=== PATIENT | male | born 1950 | race Caucasian/White ===

== ENCOUNTER → 2022-02-02 | Outpatient (CLI) | payer MEDICARE, OTHER ==
--- NOTE | 2022-02-02 14:46 | US ---
EXAMINATION TYPE: US abdomen complete DATE OF EXAM: 02/02/2022 COMPARISON: Ultrasound 05/04/2016 and MRI 02/17/2016 CLINICAL HISTORY: 71-year-old male N28.1 CYST OF KIDNEY, ACQUIRED. TECHNIQUE: Multiple sonographic images of the abdomen are obtained. FINDINGS: EXAM MEASUREMENTS: Liver Length: 10.5 cm Gallbladder Wall: 0.2 cm CBD: 0.5 cm Spleen: 10.3 cm Right Kidney: 11.9 x 5.4 x 6.2 cm Left Kidney: 12.9 x 5.5 x 5.9 cm Pancreas: Only small portions of the pancreatic body are seen. Most is obscured by bowel gas shadowi ng. Liver: Complex, septated cyst posterior left liver lobe measures 2.3 x 2.3 x 1.5 cm. Mild increased echogenicity. Some portions are obscured by rib and bowel gas shadowing. Gallbladder: No stones seen Evidence for sonographic Iglesias's sign: No CBD: wnl Spleen: wnl Right Kidney: No hydronephrosis or masses seen Left Kidney: No hydronephrosis. There is a vague hypoechoic area at the lower pole cortex measuring 1.9 x 1.5 x 1.5 cm (versus 1.7 x 1.7 x 1.6 cm in 2016) Upper IVC: wnl Abd Aorta: wnl IMPRESSION: 1. A vague cortical lesion in the lower pole of the left kidney measures 1.9 cm (versus 1.7 cm in 201 6). Not assessed in detail by ultrasound. Probable benign cyst. Precautionary annual surveillance can be performed. 2. A mildly complex cyst in the left liver lobe measures 2.3 cm. A 2.5 cm benign septated cyst was pr esent back on 02/17/2016.
== END | disposition home or self-care (01) ==
LOC: RADUSWWP 07:28
PROVIDERS: ATTEND Internal Medicine
DX: K76.89 Other specified diseases of liver (principal); N28.9 Disorder of kidney and ureter, unspecified
CPT/HCPCS: 76700

== ENCOUNTER → 2023-03-08 | Outpatient (CLI) | payer MEDICARE, OTHER ==
--- NOTE | 2023-03-08 09:04 | US ---
EXAMINATION TYPE: US kidneys/renal and bladder DATE OF EXAM: 03/08/2023 COMPARISON: 02/02/2022, CT 12/23/2015 CLINICAL INDICATION: Male, 72 years old with history of N28.1 RENAL CYST; Follow up left kidney EXAM MEASUREMENTS: Right Kidney: 11.2 x 4.1 x 5.7 cm Left Kidney: 11.5 x 5.5 x 5.4 cm Right Kidney: No hydronephrosis or masses seen Left Kidney: Extrarenal pelvis. Lower pole cortical hypoechoic lesion previously seen = 1.5 x 1.4 x 1.4 cm Bladder: distended, anechoic Bilateral Jets seen There is no evidence for hydronephrosis at this point in time. No nephrolithiasis is seen. No jada s are identified. The urinary bladder is anechoic. Bilateral ureteral jets are seen. IMPRESSION: 1. No obstructive uropathy 2. Left lower pole renal lesion, complete evaluation with MRI renal mass protocol is recommended.
== END | disposition home or self-care (01) ==
LOC: RADUSWWP 08:24
PROVIDERS: ATTEND Internal Medicine
DX: N28.1 Cyst of kidney, acquired (principal); N28.89 Other specified disorders of kidney and ureter
CPT/HCPCS: 76770

== ENCOUNTER → 2023-03-24 | Outpatient (CLI) | payer MEDICARE, OTHER ==
--- NOTE | 2023-03-26 17:41 | MR ---
EXAMINATION TYPE: MR kidney wo/w con DATE OF EXAM: 03/24/2023 1:03 PM INDICATION: Patient age:Male; 72 years old; Reason for study: N28.9 DISORDER OF KIDNEY AND URETER; [facility]. Left lower pole renal lesion. COMPARISON: MRI 02/17/2016, ultrasound 03/08/2023 TECHNIQUE: Multiplanar multi-sequence imaging was performed without contrast. Post contrast imaging was performed. Post IV contrast subtraction images were also submitted for review. IV Contrast: 9 cc Gadavist FINDINGS: LOWER CHEST: No gross irregularity. ABDOMEN Liver: High T2 signal simple appearing hepatic cysts some with septations and lobulations. Gallbladder and Bile ducts: Unremarkable. Pancreas: Unremarkable. Spleen: Unremarkable. Adrenal glands: Unremarkable. Kidneys: The right kidney is without evidence for suspicious mass or cyst. No hydronephrosis. Left kidney demonstrates similar exophytic lesion medially measuring 16 x 15 mm which is grossly hubert lar to prior in 2016. There is intrinsic high T1 signal. Postcontrast imaging demonstrates no enhance ment Stomach and Bowel: Unremarkable as visualized. Peritoneum: No evidence of pneumoperitoneum or free fluid. Vasculature: Unremarkable. No aortic aneurysm. Musculoskeletal: The osseous structures appear intact. Lymph Nodes: No gross evidence for lymphadenopathy. Abdominal wall: Small fat-containing umbilical hernia. IMPRESSION: 1. Stable appearance of left renal lesion compared to 2016. Etiology unclear represent proteinaceous /hemorrhagic cyst. Given stability since 2016 and likely benign etiology. No suspicious masses identi fied. 2. Similar scattered hepatic cysts with lobulations and thin septations. There is no diffusion abnor malities 3. Stable hepatic simple and complex appearing cyst compared to 2016. 4. No acute intracranial process.
== END | disposition home or self-care (01) ==
LOC: RADMRIMAIN 12:08
PROVIDERS: ATTEND Internal Medicine
DX: N28.9 Disorder of kidney and ureter, unspecified (principal); K76.89 Other specified diseases of liver
CPT/HCPCS: 74183; A9585